=== PATIENT | female | born 1950 | race Caucasian/White ===

== ENCOUNTER 2017-02-21 23:26 | Emergency (ER) | payer MEDICARE ==
[~2017-02-21] VITALS: Ht 180.3 cm; Wt 65.7 kg
[~2017-02-21 23:26] MED LIST: CALCIUM + D T1 UDTAB; CLINDAMYCIN HC300 MG PO; FOSAMAX70 MG; MULTIVITAMIN1 TAB; TYLENOL W/CODEI1 TAB PO; VITAMIN E
[2017-02-21 23:53] LABS: URINE BILIRUBIN SMALL (NEG); URINE BLOOD LARGE (NEG); URINE GLUCOSE (UA) NEGATIVE (NEG); URINE KETONE NEGATIVE (NEG); URINE LEUKOCYTE ESTERASE POSITIVE (NEG); URINE NITRITE POSITIVE (NEG); URINE PROTEIN MODERATE (NEG); URINE SPECIFIC GRAVITY 1.005 (1.003-1.030)
[2017-02-21 23:54] LABS: URINE APPEARANCE HAZY; URINE COLOR ORANGE
[2017-02-22] LABS: URINE WBC FULL FIELD /[HPF] (0-5)
[2017-02-22 00:01] LABS: URINE BACTERIA 1+; URINE MUCUS 1+
[2017-02-22] MEDS ORDERED: MACROBID 100 M100 M1 PO (00:22)
[2017-02-22] MEDS ORDERED: PHENAZOPYRIDIN100 M1 PO (00:22)
== END 2017-02-22 00:29 ==
LOC: EDMED 23:26
PROVIDERS: Emergency Medicine
DX: N39.0 Urinary tract infection, site not specified (principal); Z88.0 Allergy status to penicillin; Z88.8 Allergy status to other drugs, medicaments and biological substances